=== PATIENT | male | born 1955 | race Caucasian/White ===

== ENCOUNTER 2020-01-26 13:04 | Outpatient (RCR) | payer OTHER, SELFPAY ==
[2020-01-26 13:08] VITALS: BMI 48.6
[2020-01-26 13:09] VITALS: BMI 48.6
== END 2020-04-25 23:59 | disposition home or self-care (01) ==
LOC: ANHDMC 13:04
PROVIDERS: PCP Family Medicine; Visit Provider Physician Assistant
DX: E66.9 Obesity, unspecified (principal); Z71.3 Dietary counseling and surveillance
CPT/HCPCS: 97802

== ENCOUNTER → 2021-11-16 14:25 | Outpatient (CLI) | payer OTHER, SELFPAY ==
--- NOTE | ~2021-11-16 | XR_ITS ---
EXAMINATION: XR knee RT 3V DATE: 11/16/2021 14:41 INDICATION: Right knee pain. TECHNIQUE: 3 views of right knee including standing views were obtained. COMPARISON: None. FINDINGS: Bone alignment is normal. No fracture. There is moderate osteoarthritis of medial compartme nt and mild osteoarthritis of lateral and patellofemoral compartments. No knee joint effusion. IMPRESSION: 1. Moderate right knee osteoarthritis. Reviewed, dictated and finalized at location B. IKSHA DRIVER
== END ==
PROVIDERS: PCP Family Medicine; Visit Provider Nurse Practitioner Family
DX: M17.11 Unilateral primary osteoarthritis, right knee (principal)
CPT/HCPCS: 73562

== ENCOUNTER → 2022-12-20 10:14 | Outpatient (CLI) | payer OTHER, SELFPAY ==
--- NOTE | ~2022-12-20 | XR_ITS ---
Clinical Indication: Upper respiratory infection PA and lateral views of the chest: Comparison: 12/29/2018 Findings: The lungs are clear, without evidence of focal consolidation or pleural effusion. Cardiome diastinal silhouette is stable, status post median sternotomy. Bones and soft tissues are unremarkabl e. Impression: Clear lungs. Status post presumed CABG. Reviewed, dictated and finalized at location . CARRIER Impression: Clear lungs. Status post presumed CABG.
== END ==
PROVIDERS: PCP Family Medicine; Visit Provider Physician Assistant
DX: J06.9 Acute upper respiratory infection, unspecified (principal)
CPT/HCPCS: 71046

== ENCOUNTER 2023-03-30 17:44 | Emergency (ER) | payer MEDICARE, SELFPAY ==
[2023-03-30] VITALS (7 sets, daily range): BP systolic 133–176; BP diastolic 7–92; PULSE 70–84; RESP 13–23; TEMP 36.6; O2SAT 94–98
--- NOTE | ~2023-03-30 | XR_ITS ---
EXAMINATION: XR chest 2V Exam Date/Time: 03/30/2023 17:52 CDT HISTORY: chest pain Comparison: 12/20/2022. RESULT: Lines, tubes, and devices: Fractured inferior sternotomy wires, in unchanged position. Lungs and pleura: Mild streaky bibasilar atelectasis/scar. Diffuse reticular opacities with cuffing and indistinct vessels. Cardiomediastinal silhouette: Stable. Other: No acute osseous or upper abdominal finding. IMPRESSION: Interstitial edema. Reviewed, dictated and finalized at location K. IMPRESSION: Interstitial edema.
--- NOTE | 2023-03-30 17:46 | ECG_ITS ---
Measurements Intervals [place] Rate: 76 P: 70 WI: 197 QRS: -8 QRSD: 106 T: 112 QT: 357 QTc: 404 Interpretive Statements SINUS RHYTHM LEFT VENTRICULAR HYPERTROPHY AND ST-T CHANGE ANTEROSEPTAL INFARCT, AGE INDETERMINATE CONSIDER INFERIOR INFARCT, AGE INDETERMINATE ABNORMAL ECG NO PREVIOUS ECG AVAILABLE FOR COMPARISON Electronically Signed On 03-30-2023 20:56:29 CDT by Walter Austin D.O.
[2023-03-30 18:40] LABS: Basophils Absolute Auto 0.1 K/mm3 (0.0-0.1); Basophils Percent Auto 0.5 % (0.2-1.2); Eosinophils Absolute Auto 0.4 K/mm3 (0-0.3); Eosinophils Percent Auto 4.5 % (0-4.4); Hematocrit 46.9 % (42.0-52.0); Hemoglobin 15.4 g/dL (14.0-18.0); Immature Granulocyte Absolute 0.06 K/mm3 (0.00-0.031); Immature Granulocyte Percent A 0.6 % (0-0.5); Lymphocytes Absolute Auto 1.85 K/mm3 (0.9-3.2); Lymphocytes Percent Auto 19.6 % (18.3-44.2); Mean Corpuscular HGB Conc 32.8 g/dl (32-36); Mean Corpuscular Hemoglobin 30.8 pg (26-34); Mean Corpuscular Volume 93.8 fl (80-100); Mean Platelet Volume 9.7 fl (7.4-10.4); Monocytes Absolute Auto 0.8 K/mm3 (0.1-0.6); Monocytes Percent Auto 8.6 % (2.6-8.5); Neutrophils Absolute Auto 6.2 K/mm3 (1.3-6.7); Neutrophils Percent Auto 66.2 % (45.5-73.1); Platelet Count Result 200 k/mm3 (150-375); Red Cell Distribution Width 15.1 % (11.5-14.5); White Blood Count 9.4 K/mm3 (4.5-10.0)
[2023-03-30 18:53] LABS: INR 0.9; Prothrombin Time 12.8 Seconds (11.1-14.7)
[2023-03-30 18:54] LABS: Partial Thromboplastin Time 27.1 SECONDS (22.3-36.8)
[2023-03-30 19:09] LABS: Alanine Aminotransferase 42 U/L (6-50); Albumin Level 4.3 g/dL (3.5-5.1); Alkaline Phosphatase 61 U/L (38-126); Anion Gap 8 mmol/L (8-16); Aspartate Amino Transferase 38 U/L (17-59); Bilirubin,Total 0.8 mg/dL (0.2-1.3); Blood Urea Nitrogen 15 mg/dL (9-20); Calcium 8.7 mg/dL (8.4-10.2); Carbon Dioxide 23 mmol/L (22-30); Chloride 103 mmol/L (98-107); Estimated CRCL calculation 118 ml/min; Estimated Glomerular Filt Rate > 60; Glucose 156 mg/dL (65-110); Lipase 95 U/L (23-300); Potassium 4.4 mmol/L (3.4-5.0); Sodium 134 mmol/L (137-145)
[2023-03-30] MEDS: ASPIRIN 81 MG CHEWABLE TABLET 324 MG PO (19:17)
[2023-03-30 19:21] LABS: Troponin I < 0.012 ng/mL (0.000-0.034)
--- NOTE | 2023-03-30 21:16 | ED.GENADULT ---
HPI - General Adult General Chief complaint: Chest Pain Stated complaint: chest pain Time Seen by Provider: 03/30/23 19:00 History of Present Illness HPI narrative: This is a 68-year-old male presenting to the ED with a chief complaint of chest pain. Patient says that 2:00 p.m. after having lunch she started having achy pain on the right side of his chest. Has 6/10 in intensity and improving. At this point he has no pain and is resting comfortably. He has never had experienced pain like this before. No exacerbating alleviating factors. He denies nausea vomiting diaphoresis, exertional component or risk factors for DVT / PE. Patient does note that he was moving large 40 lb bags of soil yesterday. Related Data Home Medications Medication Instructions Recorded Confirmed aspirin 81 mg chewable tablet 81 mg PO DAILY 10/19/19 12/12/22 cetirizine 10 mg tablet (Zyrtec) 10 mg PO DAILY 10/19/19 12/12/22 metoprolol succinate 25 mg 25 mg PO DAILY 10/19/19 12/12/22 tablet,extended release 24 hr multivitamin (Multiple Vitamins 1 tablet PO DAILY 10/19/19 12/12/22 tablet) Allergies Allergy/AdvReac Type Severity Reaction Status Date / Time No Known Allergies Allergy Verified 01/23/23 15:58 [facility] Surgical History Surgical History S/P aortic valve replacement porcine Family History Family History Father Family history of malignant neoplasm Social History Social History Smoking status: Unknown if ever smoked Second hand tobacco smoke exposure: No Alcohol intake: current Alcohol use details: rare Substance use: never Substance use type: does not use Living arrangements: with family Occupation/Education: retired Gender identity (if verbalized by the patient): Male Sexual Orientation (if Verbalized by the Patient): Straight or Heterosexual Spiritual care concerns: No Exam Narrative: APPEARANCE: No apparent distress. Patient is resting comfortably. He is pleasant polite during interview. Head: atraumatic. EYES: EOMI, NOSE: Atraumatic NECK: Trachea midline RESPIRATORY: No increased rate of breathing CTAB CARDIOVASCULAR: RRR, no peripheral edema ABDOMINAL: obese, distended but nontender no guarding or rebound. patient states this is his baseline MUSCULOSKELETAl: No obvious deformities NEURO: Alert. Moving 4/4 extremities SKIN:: Warm, dry. Normal color PSYCHIATRIC: Normal affect Course Vital Signs Vital signs: Vital Signs Temperature 97.8 F 03/30/23 17:46 Pulse Rate 78 03/30/23 17:46 Respiratory Rate 18 03/30/23 17:46 Blood Pressure 133/89 03/30/23 17:46 Pulse Oximetry 96 03/30/23 17:46 Oxygen Delivery Room Air 03/30/23 17:46 Temperature 97.8 F 03/30/23 17:46 Pulse Rate 74 03/30/23 22:58 Respiratory Rate 20 03/30/23 22:58 Blood Pressure 152/65 H 03/30/23 22:58 Pulse Oximetry 96 03/30/23 22:58 Oxygen Delivery Room Air 03/30/23 19:08 Medical Decision Making MDM Narrative Medical decision making narrative: -Presentation: 68-year-old male presenting with right-sided chest pain that has since resolved. -DDX includes but is not limited to: ACS, chest wall pain, pneumonia, PE -Co-morbidities complicating care: aortic valve replacement, obesity, hypertension, high cholesterol -Social determinants of health: patient is retired. lives with his Christine. -External Chart Review: Review of primary care office visit from January 2023 -Hx from independent Sources: @ bedside -Discussion of Management/Consultants: Dr. Salomon - Cardiology -Independent interpretation of studies: CBC normal. Metabolic panel normal. Troponins negative x2. Chest x-ray showed no acute cardiopulmonary process. Independent EKG interpretation: Rhythm [sinus], Rate [76], Norris
[2023-03-30 21:50] LABS: Troponin I < 0.012 ng/mL (0.000-0.034)
[2023-03-31 00:15] VITALS: BP 149/74; PULSE 71; RESP 19; O2SAT 96
[2023-03-31 00:20] LABS: Troponin I < 0.012 ng/mL (0.000-0.034)
[2023-03-31 00:29] VITALS: BP 152/89; PULSE 67; RESP 20; TEMP 36.4; O2SAT 95
== END 2023-03-31 00:30 | disposition home or self-care (01) ==
PROVIDERS: Emergency Medicine; Emergency Provider Emergency Medicine; PCP Family Medicine
DX: R07.9 Chest pain, unspecified (principal)
CPT/HCPCS: 36415; 71046; 80053; 83690; 84484; 85025; 85610; 85730; 93005; 99284; A9270

== ENCOUNTER 2025-01-16 10:49 | Outpatient (CLI) | payer MEDICARE, SELFPAY | END 2025-01-16 10:50 | disposition home or self-care (01) | LOC: MICIMG 10:50 | PROVIDERS: PCP Family Medicine; Visit Provider Student in an Organized Health Care Education/Training Program | DX: R05.3 Chronic cough (principal) | CPT/HCPCS: 71046 ==

== ENCOUNTER 2025-02-09 11:08 | Outpatient (CLI) | payer MEDICARE, SELFPAY ==
--- NOTE | ~2025-02-09 | US_ITS ---
EXAMINATION: US carotid duplex BI DATE: 02/09/2025 11:50 INDICATION: Dizziness TECHNIQUE: Grayscale, color Doppler, and pulsed Doppler images of the cervical carotid arteries were obtained. The degree of vessel stenosis is placed in one of the following categories: normal, <50%, 5 0-69%, >=70% but less than near-occlusion, near-occlusion, or total occlusion. Note that percent sten osis relative to normal distal artery lumen diameter is indirectly measured from velocity measurement s as described by Denton, et al. Radiology 2003; 229:340-346. Notes: Normal: Peak systolic velocity <125 centimeters/sec and no plaque <50%. Peak systolic velocity <125 ( EDV <40; ICA/CCA PSV ratio <2.0; used these factors only a tandem lesions or low cardiac output or co ntralateral disease) 50-69 %: PSV 125-230 (EDV 40-100; ratio 2-4) >= 70% but less than near occlusion: PSV greater than 230 (EDV > 100; ratio> 4.0) Near Occlusion: PSV that is variable; markedly narrowed lumen Occlusion: Absent flow on color/spectral Doppler and no lumen on lujan scale. COMPARISON: None. FINDINGS: RIGHT: The right common carotid artery (CCA) peak systolic velocity (PSV) is 72 cm/s. The right internal car otid artery (ICA) PSV is 94 cm/s. The right ICA end-diastolic velocity (EDV) is 24 cm/s. The right IC A/CCA PSV ratio is 1.3. The external carotid artery (ECA) PSV is 70 cm/s. There is antegrade flow in the right vertebral artery. LEFT: The left CCA PSV is 75 cm/s. The left ICA PSV is 64 cm/s. The left ICA EDV is 14 cm/s. The left ICA/C CA PSV ratio is 1.0. The ECA PSV is 53 cm/s. There is antegrade flow in the left vertebral artery. IMPRESSION: 1. Less than 50% stenosis in the right internal carotid artery by sonographic criteria. 2. Less than 50% stenosis in the left internal carotid artery by sonographic criteria. Reviewed, dictated and finalized at location A. IMPRESSION: 1. Less than 50% stenosis in the right internal carotid artery by sonographic malik huffman. 2. Less than 50% stenosis in the left internal carotid artery by sonographic leonardo smiht.
--- OUTSIDE RECORDS SUMMARY | 2025-02-09 13:22 | XMS_ITS | Clinical Summary ---
Author Organization [facility] Address [address] [place] [id number] Care Team Providers Care Apparel Pattern Maker Name Role Phone Bautista Eugene MD Primary Care Provider Bautista Eugene MD Unavailable [phone] Karlo Eugene MD Unavailable [phone] Allergies No known active allergies Medications aspirin 81 mg tablet Take 1 tablet (81 mg total) by mouth daily Active multivitamin tablet tabletIndication s:Vitamin Deficiency Prevention Take 1 tablet by mouth Active lisinopriL (PRINIVIL,ZESTRI L) 10 mg tablet 1 tablet (10 mg total) daily 01/19/2020 Active atorvastatin (LIPITOR) 10 mg tablet Take 1 tablet (10 mg total) by mouth daily 01/19/2021 Active metoprolol XL (TOPROL-XL) 25 mg extended release tabletIndication s:Hx of prosthetic aortic valve replacement Take 1 tablet (25 mg total) by mouth daily 90 tablet 1 09/21/2024 Active Active Problems Problem Noted Date Diagnosed Date Hx of prosthetic aortic valve replacement 2018 Nonrheumatic aortic valve stenosis 05/16/2017 Morbid obesity 05/16/2017 Medical History Medical History Date Comments Heart murmur Family History Medical History Relation Name Comments Leukemia Father Relation Name Status Comments Brother Alive Father Mother Alive Sister Alive Social History Tobacco Use Types Packs/Day Years Used Date Smoking Tobacco: Never Smokeless Tobacco: Never Tobacco Cessation:Counseling Given: Not Answered Alcohol Use Standard Drinks/Week Comments Yes 0 (1 standard drink = 0.6 oz pur e alcohol) Personal Safety Answer Date Recorded Getting School Help Needed Not on file 01/17 Sex and Gender Information Value Date Recorded Sex Assigned at Not on file Legal Sex Male 4:41 PM CDT Gender Identity Not on file Sexual Orientation Not on file Obstetrics History Last Filed Vital Signs Vital Sign Reading Time Taken Comments Blood Pressure 104/78 02/27/2024 8:57 AM CDT Pulse 78 02/27/2024 8:57 AM CDT Temperature 36.6 C (97.9 F) 08/08/2018 3:09 PM CDT Respiratory Rate 18 11/28/2018 9:51 AM BUDGET TECHNICIAN Oxygen Saturation 92% 02/27/2024 8:57 AM CDT Inhaled Oxygen Concentration - - Weight 138.8 kg (306 lb) 02/27/2024 8:57 AM CDT Height 167.6 cm (5' 6 ) 02/27/2024 8:57 AM CDT Body Mass Index 49.39 02/27/2024 8:57 AM CDT Plan of Treatment Health Maintenance Due Date Last Done Comments Colon Cancer Screening-Colonoscopy 1955 Depression Screening 1955 Fall Risk Assessment 1955 Hepatitis C Screening 1955 Prostate Cancer Screening-PSA 1955 DTaP/Tdap/Td Vaccine (1 - Tdap) 02/18/1967 Hepatitis B Screening 02/18/1974 Pneumococcal vaccine 65+ (1 of 1 - PCV) 02/18/2006 Zoster Vaccine (1 of 2) 02/18/2006 Well Visit 65+ 02/18/2021 Influenza Vaccine (#1) 2024 12/01/2013, 2012 Insurance [place] CHO[place]F P[place] [facility] AETNA [facility] MEDICARE ADVANTAGE [facility] MEDICARE Address: [facility] [address] [place] [address] Advance Directives For more information, please contact: [phone] Documents on File Type Date Recorded Patient Golf Technician Expl anation ADVANCE DIRECTIVE 07/30/2018 12:00 AM GIAN Ignacio OF [employer]/MEDICAL Care Teams Apparel Pattern Maker Relationship Specialty Start Date End Date Bautista Eugene MD [address] [facility] [address] [place] [address] PCP - General 04/22/17 Bautista Eugene MD [address] [place] [address] [address] [place] [address] 04/22/17 Karlo Eugene MD [address] [facility] [address] [place] [address] 04/22/17
--- OUTSIDE RECORDS SUMMARY | 2025-02-09 13:22 | XMS_ITS | Referral Summary ---
Author Organization [facility] Address [address] [place] [id number] Care Team Providers Care Surgery Manager Name Role Phone Bautista Eugene MD Primary Care Provider Bautista Eugene MD Unavailable [phone] Karlo Eugene MD Unavailable [phone] Allergies No known active allergies Medications aspirin [...] aortic valve stenosis 05/16/2017 Morbid obesity 05/16/2017 Social History Tobacco Use Types Packs/Day Years Used Date Smoking Tobacco: Never Smokeless Tobacco: Never Tobacco Cessation:Counseling Given: Not Answered Alcohol Use Standard Drinks/Week Comments Yes 0 (1 standard drink = 0.6 oz pur e alcohol) Personal Safety Answer Date Recorded Getting School Help Needed Not on file 03/02 /2024 Sex and Gender Information Value Date Recorded Sex Assigned at Not on file Legal Sex Male 4:41 PM CDT Gender Identity Not on file Sexual Orientation Not on file Last Filed Vital Signs Vital Sign Reading Time Taken Comments Blood Pressure 104/78 02/27/2024 8:57 AM CDT Pulse 78 02/27/2024 8:57 AM CDT Temperature 36.6 C (97.9 F) 08/08/2018 3:09 PM CDT Respiratory Rate 18 11/28/2018 9:51 AM DIRECTOR OF REIMBURSEMENT Oxygen Saturation 92% 02/27/2024 8:57 AM CDT Inhaled Oxygen Concentration - - Weight 138.8 kg (306 lb) 02/27/2024 8:57 AM CDT Height 167.6 cm (5' 6 ) 02/27/2024 8:57 AM CDT Body Mass Index 49.39 02/27/2024 8:57 AM CDT Plan of Treatment Not on file Insurance [place] [facility] AETNA [facility] MEDICARE ADVANTAGE * Guarantor: FACUNDO MORALES Account Type Relation to Patient Date of Phone Billing Address Personal/Family [address] [place] [address] Advance Directives For more information, please contact: [phone] Documents on File Type Date Recorded Patient Student Counselor Expl anation ADVANCE DIRECTIVE 07/30/2018 12:00 AM GIAN R OF [employer] FINANCIAL/MEDICAL Care Teams Surgery Manager Relationship Specialty Start Date End Date Bautista Eugene MD [address] [place] [address] PCP - General 04/22/17 Bautista Eugene MD [address] [place] [address] 04/22/17 Karlo Eugene MD [address] [place] [id number] 04/22/17
--- OUTSIDE RECORDS SUMMARY | 2025-02-09 13:22 | XMS_ITS | Encounter Summary ---
Author Organization [facility] Address [address] [facility] [address] [place] [address] Care Team Providers Care Slasher Tender Name Role Phone Bautista Eugene MD Primary Care Provider Bautista Eugene MD Primary Care Provider Bautista Eugene MD Unavailable [phone] Karlo Eugene MD Unavailable [phone] Encounter Details Date Type Department Care Team (Late st Contact Info) Description 04/03/2017 Orders Only [facility] ProviderLeon MD [address] [place] [id number] Social History Tobacco Use Types Packs/Day Years Used Date Smoking Tobacco: Never Assessed Sex and Gender Information Value Date Recorded Sex Assigned at Not on file Legal Sex Male 4:41 PM CDT Gender Identity Not on file Sexual Orientation Not on file documented as of this encounter Plan of Treatment Not on file documented as of this encounter Procedures Procedure Name Priority Date/Time Associated Diagnosis Comments CARDIOLOGY REPORT 04/03/2017 documented in this encounter Results * CARDIOLOGY REPORT (04/03/2017) Anatomical Region Laterality Modality Other Narrative 04/03/2017 Ordered by an unspecified provider. Historical Provider [facility] CHRIST[facility] SHARPE Final Result documented in this encounter Visit Diagnoses Not on filedocumented in this encounter Care Teams Slasher Tender Relationship Specialty Start Date End Date Bautista Eugene MD [address] [facility] [address] [place] [address] PCP - General 03/07/17 04/21/17 Bautista Eugene MD [address] [address] PCP - General 04/22/17 Bautista Eugene MD [address] [address] 04/22/17 Karlo Eugene MD [address] [place] [address] 04/22/17 documented as of this encounter
== END 2025-02-09 11:09 | disposition home or self-care (01) ==
PROVIDERS: PCP Family Medicine; Visit Provider Student in an Organized Health Care Education/Training Program
DX: R09.89 Other specified symptoms and signs involving the circulatory and respiratory systems (principal); I65.23 Occlusion and stenosis of bilateral carotid arteries
CPT/HCPCS: 93880